=== PATIENT | female | born 1950 | race Caucasian/White ===

== ENCOUNTER 2016-10-07 17:45 | Emergency (ER) | payer OTHER, MEDICARE ==
[~2016-10-07] VITALS: Ht 154.9 cm; Wt 83.0 kg
[~2016-10-07 17:45] MED LIST: CIPRO500 M1 PO; FLAGYL500 MG PO; VICODIN 5-3001 EACH PO
--- NOTE | 2016-10-07 18:24 | ED GI/GU/ABDOMINAL COMPLAINT ---
History of Present Illness General Chief Complaint: Abdominal Pain/Flank Pain Stated Complaint: LEFT SIDED ABD PAIN Source: patient, old records Exam Limitations: no limitations Vital Signs & Intake/Output Vital Signs & Intake/Output Vital Signs Date Time Temp Pulse Resp B/P Pulse O2 O2 Flow FiO2 Ox Delivery Rate 10/07 2006 98.1 66 18 167/85 100 Room Air 10/07 1856 97 Room Air Room Air 10/07 1801 98.5 58 18 169/81 94 Room Air ED Intake and Output 10/08 0000 10/07 1200 Intake Total Output Total Balance Patient 183 lb Weight Allergies Uncoded Allergies: SILK TAPE (RASH 10/13/12) Reconcile Medications Aspirin (Aspirin*) 81 MG TAB.CHEW 1 TAB PO DAILY HEART HEALTH (Reported) Atorvastatin Calcium 10 MG TABLET 1 TAB PO DAILY >CHOL (Reported) Ciprofloxacin HCl (Cipro) 500 MG TABLET 1 TAB PO BID infection Glipizide (Glipizide ER) 10 MG TAB.ER.24 1 TAB PO DAILY DM (Reported) Hydrocortisone Valerate 0.2 % OINT...G. 1 UNIT TOP QPMP PSORIASIS (Reported) Levothyroxine Sodium 75 MCG TABLET 1 TAB PO DAILY THYROID (Reported) Metformin HCl (Metformin HCl ER) 500 MG TAB.ER.24H 1 TAB PO BID DM (Reported) Metronidazole 500 MG TABLET 1 TAB PO TID diverticulitis Quinapril HCl 40 MG TABLET 1 TAB PO DAILY B/P (Reported) Sitagliptin Phosphate (Januvia) 100 MG TABLET 1 TAB PO DAILY DM (Reported) Tramadol HCl 50 MG TABLET 1-2 TAB PO Q6 PRN pain Triage Note: RECEIVED 66 YO FEMALE WITH HX OF DIVERTIULITIS, C/O LLQ ABDOMINAL PAIN STARTED 2 DAYS AGO. NO C/O N/V/D. + CONSTIPATION. Triage Nurses Notes Reviewed? yes ? n Is pt currently ? No HPI: Patient is a 66-year-old female presents complaining of left lower quadrant pain. Pain onset approximately 1.5 days ago is currently 5 out of 10, intermittently sharp sensation. Standing worsens the pain. Pain feels similar to previous episode of diverticulitis. Patient was having difficulty with bowel movements, last night took a stool softener and laxative then this morning had a small hard bowel movement. Diaphoresis and subjective fevers last night. Patient denies vomiting, urinary symptoms, back pain. (CONSUELO VELASQUEZ) Past History Travel History Traveled to [place] past 21 day No Medical History Any Pertinent Medical History? see below for history Neurological: NONE EENT: NONE Cardiovascular: hyperlipidemia Respiratory: NONE Gastrointestinal: diverticulitis Hepatic: NONE Renal: NONE Musculoskeletal: NONE Psychiatric: NONE Endocrine: diabetes, hypothyroidism Blood Disorders: NONE Cancer(s): NONE Surgical History Surgical History: appendectomy, Psychosocial History What is your primary language Mauritian Tobacco Use: Quit >30 days ago ETOH Use: occasional use Family History Hx Contributory? No (CONSUELO VELASQUEZ) Review of Systems Review of Systems Constitutional: Reports: diaphoresis, fever. EENTM: Reports: no symptoms. Respiratory: Denies: cough, short of breath. Cardiovascular: Denies: chest pain. GI: Reports: see HPI. Genitourinary: Reports: no symptoms. Musculoskeletal: Reports: no symptoms. Skin: Reports: no symptoms. Neurological/Psychological: Reports: no symptoms. Hematologic/Endocrine: Reports: other (history of type 2 diabetes). Immunologic/Allergic: Reports: no symptoms. (CONSUELO VELASQUEZ) Physical Exam Physical Exam General Appearance: well developed/nourished, alert, awake Head: atraumatic, normal appearance Eyes: Bilateral: normal appearance, PERRL, EOMI. Ears, Nose, Throat, Mouth: hearing grossly normal, moist mucous membrane Neck: normal inspection, supple, full range of motion Respiratory: normal breath sounds, chest non-tender, no respiratory distress, lungs clear Cardiovascular: regular rate/rhythm (no appreciable murmur) Gastrointestinal: normal bowel sounds, soft, left lower quadrant tenderness. No rebound, no guarding. no palpable pulsatile masses Back: normal inspection, normal range of motion Extremities: normal range of motion Neurologic/Psych: no motor/sensory deficits, awake, alert, oriented x 3, normal gait, normal mood/affect Skin: intact, normal color, warm/dry Core Measures ACS in differential dx? No Severe Sepsis Present: No Septic Shock Present: No (CONSUELO VELASQUEZ) Progress Differential Diagnosis: AAA, diverticulitis, hepatitis, hernia, ischemic bowel, inflamm bowel dis, kidney stone, ovarian cyst, ovarian torsion, pancreatitis, perforated viscous, UTI/pyelo Plan of Care: Orders Procedure Date/time Status Add-on Test (ER Only) 10/07 2038 Active CULTURE,URINE 10/07 1844 Active URINALYSIS 10/07 1825 Complete LACTIC ACID 10/07 1825 Complete COMPREHENSIVE METABOLIC PANEL 10/07 1825 Complete CBC WITHOUT DIFFERENTIAL 10/07 1825 Complete Laboratory Tests 10/07/162125: Lactic Acid Cancelled 10/07/161844: Anion Gap 11, Estimated GFR > 60, BUN/Creatinine Ratio 23.3, Glucose 116 H, Lactic Acid 1.0, Calcium 9.3, Total Bilirubin 0.5, AST 16, ALT 32, Alkaline Phosphatase 84, Total Protein 6.9, Albumin 3.9, Globulin 3.0, Albumin/Globulin Ratio 1.3, CBC w Diff NO MAN DIFF REQ, RBC 4.49, MCV 84.7, MCH 27.7, RDW 14.1, MPV 7.6, Gran % 67.3, Lymphocytes % 25.5, Monocytes % 5.9, Eosinophils % 0.9, Basophils % 0.4, Absolute Granulocytes 6.7 H, Absolute Lymphocytes 2.6, Absolute Monocytes 0.6, Absolute Eosinophils 0.1, Absolute Basophils 0, PUBS MCHC 32.8 L, Urine Color YEL, Urine Clarity HAZY H, Urine pH 6.0, Ur Specific [place] 1.010, Urine Protein NEG, Urine Ketones NEG, Urine Nitrite NEG, Urine Bilirubin NEG, Urine Urobilinogen 0.2, Ur Leukocyte Esterase TRACE H, Ur Microscopic SEDIMENT EXAMINED, Urine RBC RARE, Urine WBC 1-3 H, Ur Epithelial Cells RARE, Urine Bacteria MOD H, Urine Hemoglobin NEG, Urine Glucose NEG Microbiology 10/07 1844 URINE ROUT: Urine Culture - RECD Patient declined pain medication or antinausea medicine on initial exam. Discussed with Dr. Jerome. Results of labs and CT scan discussed with patient. Patient afebrile, nontoxic- appearing, appears stable for discharge. Patient instructed to follow up with her primary care provider early next week for further evaluation and to return immediately if worsening. (CURT DAI,CONSUELO) Diagnostic Imaging: Viewed by Me: CT Scan. Discussed w/RAD: CT Scan. Radiology Impression: PATIENT: SAVANNAH INTERIANO PRESENT AGE: 66 PATIENT ACCOUNT NO: [id number] : 50 LOCATION: [facility] ORDERING PHYSICIAN: CONSUELO DAI SERVICE DATE: 10/07/16 EXAM TYPE: CAT - CT ABD & PELVIS W IV CONTRAST EXAMINATION: CT ABDOMEN AND PELVIS WITH CONTRAST CLINICAL INFORMATION: Left lower quadrant pain and tenderness. COMPARISON: CT abdomen pelvis 11/09/2015 TECHNIQUE: Multidetector volumetric imaging was performed of the abdomen and pelvis before and after the IV administration of 95 mL of Optiray 320 intravenous contrast. Sagittal and coronal reformatted images were obtained on the technologist's workstation. DLP: 554.4 mGy-cm FINDINGS: LUNG BASES: Lung bases clear. Calcification of mitral valve annulus. LIVER, GALLBLADDER, AND BILIARY TREE: The liver is normal in size , shape, and attenuation. No focal hepatic lesion or biliary ductal dilatation is present. The gallbladder is unremarkable with no evidence of radiopaque gallstones, gallbladder wall thickening, or obvious pericholecystic inflammatory changes. PANCREAS: Unremarkable. SPLEEN: Unremarkable. ADRENAL GLANDS: Unremarkable. KIDNEYS AND URETERS: The kidneys are normal in size, shape, and attenuation. No hydronephrosis, hydroureter, or calculi seen. No perinephric stranding. BLADDER: Unremarkable. GASTROINTESTINAL TRACT: There is focal edema of the distal descending colon. This is related to diverticula. This is a focal diverticulitis. There is no perforation or abscess. No bowel obstruction. Diverticula are scattered throughout the colon. Moderate volume of stool in colon. The appendix is not seen. Small bowel is unremarkable. ABDOMINAL WALL: No significant hernia is appreciated. LYMPH NODES: Normal. VASCULAR: Scattered vascular wall calcifications of aorta and iliac vessels without aneurysm. PELVIC VISCERA: Uterus is anteverted. No adnexal abnormality. OSSEOUS STRUCTURES: Multilevel degenerative change of the spine with endplate spurs of the vertebrae IMPRESSION: Diverticulitis of the distal descending colon DICTATED BY: LORETA BLISS MD DATE/TIME DICTATED:10/07/162039 COAL INSPECTOR:KONSTANTIN DATE/TIME TRANSCRIBED:10/07/162039 CONFIDENTIAL, DO NOT COPY WITHOUT APPROPRIATE AUTHORIZATION. <Electronically signed in Other Vendor System> SIGNED BY: LORETA BLISS MD 10/07/162048 Initial ED EKG: none (CONSUELO VELASQUEZ) Departure Departure Time of Disposition: 2052 Disposition: HOME OR SELF CARE Condition: Stable Clinical Impression Primary Impression: Diverticulitis Qualifiers: Diverticulitis site: large intestine Diverticulitis bleeding: without bleeding Diverticulitis complication: without perforation or abscess Qualified Code: K57.32 - Diverticulitis of large intestine without perforation or abscess without bleeding Referrals: JOSE DOMINGUEZ APRN (PCP/Family) Additional Instructions: Follow up with your primary care provider on Monday or Monday. Return to the ER if fevers, increasing pain, unable to stay hydrated or worsening of symptoms. Departure Forms: Customer Survey General Discharge Information Prescriptions: Current Visit Scripts Ciprofloxacin HCl (Cipro) 1 TAB PO BID #20 TAB Metronidazole 1 TAB PO TID #30 TAB Tramadol HCl 1-2 TAB PO Q6 PRN pain #15 TAB (CONSUELO VELASQUEZ) PA/TELEPHONE OPERATOR CHIEF Co-Sign Statement Statement: ED Attending supervision documentation- [] I saw and evaluated the patient. I have also reviewed all the pertinent lab results and diagnostic results. I agree with the findings and the plan of care as documented in the PA's/TELEPHONE OPERATOR CHIEF's documentation. [x] I have reviewed the ED Record and agree with the PA's/TELEPHONE OPERATOR CHIEF's documentation. [] Additions or exceptions (if any) to the PAs/TELEPHONE OPERATOR CHIEF's note and plan are summarized below: [] (TANIYA DUMONT,GENARO Rivera)
[2016-10-07] MEDS ORDERED: GLIPIZIDE ER10 M1 PO (19:00)
[2016-10-07] MEDS ORDERED: ATORVASTATIN CA10 M1 PO (19:01)
[2016-10-07] MEDS ORDERED: QUINAPRIL HCL40 M1 PO (19:01)
[2016-10-07] MEDS ORDERED: LEVOTHYROXINE75 MCG PO (19:02)
[2016-10-07] MEDS ORDERED: METFORMIN HCL500 M4 PO (19:02)
[2016-10-07] MEDS ORDERED: HYDROCORTISONE15 G1 TOP (19:03)
[2016-10-07] MEDS ORDERED: JANUVIA100 M1 PO (19:03)
[2016-10-07] MEDS ORDERED: ASPIRIN81 M4 PO (19:04)
[2016-10-07 19:11] LABS: ABSOLUTE BASOPHIL COUNT 0 /CUMM (0.0-0.2); ABSOLUTE EOSINOPHIL COUNT 0.1 /CUMM (0.0-0.7); ABSOLUTE GRANULOCYTE CT 6.7 /CUMM (1.4-6.5); ABSOLUTE LYMPH COUNT 2.6 /CUMM (1.2-3.4); ABSOLUTE MONOCYTE COUNT 0.6 /CUMM (0.10-0.60); BASOPHIL % 0.4 % (0.0-2.0); EOSINOPHIL % 0.9 % (0-5); GRANULOCYTE % 67.3 % (42.2-75.2); HEMATOCRIT 38.1 % (37-47); MEAN CORPUSCULAR HGB 27.7 PG (27.0-31.0); MEAN CORPUSCULAR HGB CONC 32.8 G/DL (33.0-37.0); MEAN CORPUSCULAR VOLUME 84.7 FL (81.0-99.0); MEAN PLATELET VOLUME 7.6 FL (7.4-10.4); PLATELET COUNT 333 /CUMM (130-400); RBC DISTRIBUTION WIDTH 14.1 % (11.5-14.5); RED BLOOD CELL CT 4.49 /CUMM (4.20-5.40)
[2016-10-07 20:07] VITALS: BP 167/85
--- NOTE | 2016-10-07 20:49 | CT SCAN REPORT ---
EXAMINATION: CT ABDOMEN AND PELVIS WITH CONTRAST CLINICAL INFORMATION: Left lower quadrant pain and tenderness. COMPARISON: CT abdomen pelvis 11/09/2015 TECHNIQUE: Multidetector volumetric imaging was performed of the abdomen and pelvis before and after the IV administration of 95 mL of Optiray 320 intravenous contrast. Sagittal and coronal reformatted images were obtained on the technologist's workstation. DLP: 554.4 mGy-cm FINDINGS: LUNG BASES: Lung bases clear. Calcification of mitral valve annulus. LIVER, GALLBLADDER, AND BILIARY TREE: The liver is normal in size, shape, and attenuation. No focal hepatic lesion or biliary ductal dilatation is present. The gallbladder is unremarkable with no evidence of radiopaque gallstones, gallbladder wall thickening, or obvious pericholecystic inflammatory changes. PANCREAS: Unremarkable. SPLEEN: Unremarkable. ADRENAL GLANDS: Unremarkable. KIDNEYS AND URETERS: The kidneys are normal in size, shape, and attenuation. No hydronephrosis, hydroureter, or calculi seen. No perinephric stranding. BLADDER: Unremarkable. GASTROINTESTINAL TRACT: There is focal edema of the distal descending colon. This is related to diverticula. This is a focal diverticulitis. There is no perforation or abscess. No bowel obstruction. Diverticula are scattered throughout the colon. Moderate volume of stool in colon. The appendix is not seen. Small bowel is unremarkable. ABDOMINAL WALL: No significant hernia is appreciated. LYMPH NODES: Normal. VASCULAR: Scattered vascular wall calcifications of aorta and iliac vessels without aneurysm. PELVIC VISCERA: Uterus is anteverted. No adnexal abnormality. OSSEOUS STRUCTURES: Multilevel degenerative change of the spine with endplate spurs of the vertebrae IMPRESSION: Diverticulitis of the distal descending colon
[2016-10-07] MEDS ORDERED: TRAMADOL HCL50 M1 PO (20:52)
[2016-10-07] MEDS ORDERED: CIPRO500 M1 PO (20:52)
[2016-10-07] MEDS ORDERED: METRONIDAZOLE500 M1 PO (20:52)
== END 2016-10-07 21:05 ==
LOC: ERH 17:45
PROVIDERS: Physician Assistant
DX: K57.92 Diverticulitis of intestine, part unspecified, without perforation or abscess without bleeding (principal)
CPT/HCPCS: 74177; 81001; 87086